=== PATIENT | female | born 1985 | race Caucasian/White ===

== ENCOUNTER 2020-02-13 00:48 | Observation (INO) | payer BC ==
--- NOTE | 2020-02-13 02:42 | US ---
PROCEDURE INFORMATION: Exam: US , Limited Exam date and time: 02/13/2020 2:01 AM Age: 34 years old Clinical indication: Lmp or gestational age (in weeks): [id number]; Antepartum complications; Bleeding; ; Additional info: Vag bleeding, 34 6/7 wks, ctx TECHNIQUE: Imaging protocol: Real-time ultrasound of the maternal uterus with image documentation. Exam focused on the clinical indication. COMPARISON: No relevant prior studies available. FINDINGS: Gestation: There is a single intrauterine gestation. Heart rate: heart rate 128 bpm Presentation: presentation is breech. Placenta: The placenta is fundal without evidence of previa or abruption. Amniotic fluid index: MICHELLE 9 cm. MATERNAL: Cervix: The cervix measures 2.7 cm in length. There is some opening of the internal cervical os measuring approximately 6 mm in diameter in approximately 7 mm in depth. IMPRESSION: 1. Single viable intrauterine gestation, heart rate 128 bpm 2. There is mild funneling of the internal cervical os measuring approximately 6 mm in diameter and 7 mm in depth 3. Normal MICHELLE of 9 cm.
[2020-02-13] MEDS ORDERED: Tranexamic Acid 1,000 MG in Sodium Chloride 0.9% 100 ML IV PRN (02:49)
[2020-02-13] MEDS ORDERED: Sodium Chloride 0.9% 10 ML Syringe FLUSH PRN (02:49)
[2020-02-13] MEDS ORDERED: Betamethasone Acetate/Betamethasone Sod Phosphate 30 MG/5 ML MDV IM SCH (03:00)
[2020-02-13] MEDS ORDERED: Lactated Ringers 1,000 ML IV SCH (03:00)
[2020-02-13 03:58] VITALS: BP 134/84; PULSE 72
--- NOTE | 2020-02-13 05:01 | HP ---
PATIENT IDENTIFICATION: Rosario Peres is a 34-year-old G6, P4-1-0-3 intrauterine at 34-6/7 weeks by 18-2/7 week ultrasound, who presents with vaginal bleeding and contraction. HISTORY OF PRESENT ILLNESS: The patient states approximately 3 hours prior to evaluation, around 1:30 in the morning, the patient had vaginal bleeding after sitting on the couch, then getting up to the bathroom, described as bright red blood, enough to paint the toilet bowl red and drip in the toilet bowl, and be present on a pad that she presented with today. With this in context, she was evaluated by Dr. Robles on 02/10/2020 for vaginal bleeding. At that time, had an ultrasound done revealing mature calcified placenta located posterior extending up into the fundus with small section of placental tissue anteriorly up to the fundus, possible succenturiate lobe with no sign of retroplacental hematoma abruption with no placenta previa noted with breech presentation noted. The patient was started on nifedipine as she had been on this in [address] Robles's notes for contractions. The patient describes having contractions since at least 02/10/2020 when she was evaluated by Dr. Robles. They have stayed stable throughout then. Have not been getting worse. [place] in the lower abdomen, rated 3/10, and she is unsure how often they are coming on. Records were called for, reviewed as below, and supplemented by patient history. OB HISTORY: Hard to update through [facility]. On 06/26/2014, had a suspected spontaneous vaginal delivery, 8 pounds, suspected term. 2008, 37-3/7 weeks, had term spontaneous vaginal delivery that was precipitous in nature. Another delivery, at 25 weeks, had a delivery with prolapse of cord and the baby was born stillbirth by notes and she has had 2 other term deliveries, suspected spontaneous vaginal delivery. PAST MEDICAL/PAST SURGICAL HISTORY: Remarkable for history of chickenpox, heart murmur, being blood type O negative. Past Surgical History: Reviewed and nothing elicited. FAMILY HISTORY: Diabetes in mother. Father has diabetes and heart disease. SOCIAL HISTORY: The patient lives in the [place] area. Has been getting OB care in [facility]. and with Dr. Robles. 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 She has been with the same partner and him for over 13 years. She does describe smoking tobacco. Used half a pack a day for at least 10 years. No alcohol or drug use. REVIEW OF SYSTEMS: The patient denies any fever, chills, sweats, cough, cold, runny nose, shortness of breath, swelling. Otherwise, review of systems fully reviewed and felt to be contributory as above. ANTEPARTUM LABS: Done through review of the chart and labs from outlying facilities. ABO blood type is O negative. Negative antibody screen on 10/27/2019. Rubella immune. RPR nonreactive. Negative hepatitis B surface antigen. Negative HIV. Negative GC, chlamydia with a wet prep in the past. Negative for clue cells, trichomoniasis, yeast. OBJECTIVE: Vital Signs: Initial blood pressure was 144/85, heart rate of 71, temperature 97.5. Recheck blood pressure 129/89 with a heart rate of 71. Appearance: Female appears stated age, acting appropriate for age, nontoxic appearance. Head: Atraumatic. EOMs intact. PERRLA. No scleral icterus. No obvious otorhinorrhea. Mucous membranes moist. Neck: No obvious tenderness. Lungs: Clear to auscultation bilaterally. No increased work of breathing. Heart: S1, S2. Regular rate and rhythm. Abdomen: Gravid. Emeterio's indeterminate. Nontender, nondistended. Bowel sounds positive. No organomegaly, pulsatile masses, or hernias. No rebound, rigidity, or guarding. : Normal external female genitalia. Normal position and presentation of urethra. Speculum exam done. FFN obtained. Blood noted to be coming from the os. No pooling, but some clot was removed from the posterior vault. Vaginal: Thereafter reveals to be 1 to 1.5 cm, 50% effaced, ballotable presentation. Extremities: No peripheral edema. Deep tendon reflexes 2 to 3 out of 4 bilaterally and symmetric extremities. Mood and affect congruent. Judgment and insight intact. Skin: Without any cyanosis, clubbing, or jaundice. LABORATORY DATA: Pending is an fFN. DIAGNOSTIC DATA: Stat ultrasound was called for. Cervical length was less than 3 cm by tech report. We are awaiting final result, and reviewing location of placenta at this point in time. Further review does reveal questionable ultrasound done on 02/10/2020, small section of placental tissue anteriorly up to the fundus, possible succenturiate lobe noted with majority of mature calcified placenta being located posteriorly extending up into the fundus with breech presentation at that time. heart tones in the 120s, felt to be reactive and reassuring. Tocometer reveals contractions as close as every 3 to 5 minutes apart at times. Ultrasound reviewed by my eyes with tech as well for this evaluation. ASSESSMENT: 1. Intrauterine 34-6/7 weeks by 18-2/7-week ultrasound. 2. Vaginal bleeding, no obvious source elicited with final ultrasound results pending and being done currently at time of dictation. 3. contractions. Currently, on nifedipine per Dr. Robles and the patient states she had this back in 2013 and this was started on 02/10/2020. At this point in time, concerning especially in light of the cervical length, pending is the fFN. We will consult further with REGIONAL DIRECTOR OF ADMISSIONS for further management recommendations. Reassuring, however, is the cervix has not changed significantly in terms of dilation by my exam compared to Dr. Robles's exam on 02/10/2020. 4. O negative blood type. Received RhoGAM on 01/01/2020, which is less than 12 weeks ago. 5. History of cord prolapse with prior with stillborn baby at 25 weeks due to prolapse. 6. History of a child who of sudden infant syndrome around 7 weeks along by history further elicited through nurses and other charts reviewed. 7. G6, P4-1-0-3. PLAN: We will wait fFN. Cervical length is shortened by tech report. Await ultrasound for bleeding source and most likely we will need to consult REGIONAL DIRECTOR OF ADMISSIONS for further evaluation and management. We will consider betamethasone and further evaluation and management per REGIONAL DIRECTOR OF ADMISSIONS consultation. The patient understands and agrees to above treatment plan. At current time of dictation, awaiting fFN and we will proceed from there as above. [facility] /[id number] HERON
--- NOTE | 2020-02-13 05:21 | DISCH ---
ADMITTING DIAGNOSES: 1. Intrauterine at 34-6/7 weeks by 18-2/7 week ultrasound. 2. contractions, 02/10/2020, unresolved with nifedipine started by Dr. Robles on 02/10/2020. 3. Vaginal bleeding since approximately 3 hours prior to evaluation around midnight on date of evaluation. 4. History of group B Streptococcus infected baby with group B Streptococcus negative on 02/02/2020. 5. History of cord prolapse and delivery of stillborn. 6. History of sudden infant syndrome at approximately 7 weeks of age. 7. G6, P4-1-0-3. DISCHARGE DIAGNOSES: 1. Intrauterine at 34-6/7 weeks by 18-2/7 week ultrasound. 2. contractions, 02/10/2020, unresolved with nifedipine started by Dr. Robles on 02/10/2020. 3. Vaginal bleeding since approximately 3 hours prior to evaluation around midnight on date of evaluation. 4. History of group B Streptococcus infected baby with group B Streptococcus negative on 02/02/2020. 5. History of cord prolapse and delivery of stillborn. 6. History of sudden syndrome at approximately 7 weeks of age. 7. G6, P4-1-0-3. 8. Short cervical length, less than 3 cm per tech report. 9. Succenturiate lobe placenta. 10.No source of vaginal bleeding noted on ultrasound. 11. fibronectin positive. 12.To be given betamethasone prior to transfer. HISTORY OF PRESENT ILLNESS: Please see H and P. SUMMARY OF HOSPITAL COURSE: The patient was evaluated on the above date with above diagnoses. NST was performed, felt to be reactive and reassuring. Tocometer revealed contractions every 3 to 5 minutes. Vaginal exam revealed to be essentially unchanged from 02/10/2020, being 1.5 cm, 50% effaced, ballotable presentation with ultrasound revealing breech presentation. Cervical length less than 3 cm and fFn that was positive. Her vaginal bleeding was noted to be more clots in the vaginal region cleared with no pooling noted or significant active bleeding noted. Please see other notes for further details. CONDITION ON DISCHARGE COMPARED TO CONDITION ON ADMISSION: Guarded. DISCHARGE INSTRUCTIONS: IV fluids will be started. Will be transferred via ambulance to Dr. Mandy Mc in [place], PLANER OFFBEARER, who has recommended transfer to higher level of care. She will receive her betamethasone prior to discharge, 12 mg IM. I did discuss the risks, benefits, alternatives, and complications of transfer and will transfer to higher level care as soon as possible. The patient and her male partner understand and agree with above treatment plan. Discharge evaluation reveals heart tones in the 120s, felt to reactive, reassuring. Tocometer reveals contractions every 2 to 4 minutes. At current time of dictation, ground transport is unavailable. Therefore, we are going to try to call [facility] to see if they will come up via ambulance to sweet pickle maker this patient. Admit for observation and follow with monitoring, betamethasone, IV fluid resuscitation, and will proceed with continued observation and admission and updates per notes and nurse's notes. consider transfer if stable once transportation available. [facility] /[id number] MTDD
--- NOTE | 2020-02-13 06:18 | OBOUT ---
DATE: 02/13/2020 TIME: 1 o'clock to 1:20. REASON FOR NST: 1. Intrauterine at 34-6/7 weeks by 18-2/7 week ultrasound. 2. contractions. Started on nifedipine on 02/10/[address] Robles. Noted to be on previous . 3. Vaginal bleeding since approximately 3 hours prior to evaluation. 4. Recently short cervical length, less than 3 cm noted. 5. History of GBS infected baby with GBS negative on 02/02/2020. 6. History of cord prolapse and delivery of stillborn in past. 7. History of SIDS at approximately 7 weeks of age. 8. G6, P4-1-0-3. NST INTERPRETATION: During this time period, heart tone baseline is approximately 120 to 125 and at least two 15 x 15 beats per minute accelerations, making this strip reactive as well as reassuring. Tocometer reveals potential of 4 contractions during this time. Initial blood pressure 144/85, heart rate 71 when she was initially nervous. Recheck blood pressure 129/89, heart rate 71. ASSESSMENT: 1. Nonstress test, reactive and reassuring. 2. Tocometer with contractions. PLAN: Please see other OB notes for further details. At current time of dictation, waiting fFN. A short cervical length was noted on ultrasound, approximately less than 3 cm, and breech presentation noted with no obvious source of bleeding with a calcified placenta with succenturiate lobe noted. Awaiting fFN. We will consult BOARDINGHOUSE KEEPER once has results and may need to consider either admission for observation, transfer of care, and betamethasone for lung maturity. [facility] /[id number]
--- NOTE | 2020-02-13 08:47 | PN ---
DATE: 02/13/2020 SUBJECTIVE: The patient still feels her contractions occasionally. OBJECTIVE: heart tones in the 120s, felt to reactive and reassuring. Tocometer reveals contractions every 2 to 5 minutes apart. ASSESSMENT AND PLAN: Intrauterine at 34-6/7 weeks by an 18-2/7 week ultrasound with contractions and vaginal bleeding with a positive fFN with cervical length less than 3 cm, now status post betamethasone 12 mg IM to be given soon, and discussed transferring to higher level of care with Dr. Galvan, who has graciously agreed, HEALTHCARE FINANCIAL ANALYST. At this point in time we will be admitting to observation and treating with IV fluids, give her betamethasone as above, and continual monitoring until able to transfer to higher level of care. She needs admission due to her high-risk factors including being at risk of labor and delivery and for monitoring with her vaginal bleeding. We will proceed as above and discharge to transfer to higher level of care when transport is available. [facility] /[id number] MTDCl[place]
--- NOTE | 2020-02-13 10:30 | PN ---
DATE: 02/13/2020 Review of further ultrasound did reveal suspected succenturiate lobe that was noted earlier on 02/10/2020 and a breech presentation which was also noted on 02/10/2020. At current time of dictation, awaiting fFN to further consult MOTOR VEHICLES INSPECTOR for further recommendations. [facility] /[id number]
== END 2020-02-13 04:45 ==
LOC: DL.OBCHECK 00:48 → DL.OB 02:49
PROVIDERS: ADMIT Family Medicine; ATTEND Family Medicine
DX: O46.93 Antepartum hemorrhage, unspecified, third trimester (principal); O60.03 Preterm labor without delivery, third trimester; O99.333 Smoking (tobacco) complicating pregnancy, third trimester; F17.210 Nicotine dependence, cigarettes, uncomplicated; Z87.51 Personal history of pre-term labor; Z87.59 Personal history of other complications of pregnancy, childbirth and the puerperium; Z86.19 Personal history of other infectious and parasitic diseases; Z3A.34 34 weeks gestation of pregnancy
CPT/HCPCS: 59025; 76815; 76817; 82731; 96361; 96372; G0378; J0702; J7120